=== PATIENT | male | born 1975 | race Caucasian/White ===

== ENCOUNTER 2017-05-20 09:35 | Emergency (ER) | payer MEDICAID ==
[2017-05-20 09:48] VITALS: BP 140/85; PULSE 64; RESP 16; TEMP 98.6; O2SAT 94
[2017-05-20] MEDS ORDERED: IBUPROFEN 600 MG TAB PO ONE (10:26)
[2017-05-20] MEDS ORDERED: AMOXICILLIN 250 MG PREPACK#4 BTL TAKEHOME ONE (10:26)
--- NOTE | 2017-05-20 10:32 | EDPHY ---
H & P Stated Complaint: BOTTOM LEFT TOOTH ACHE NEEDS SINCE SATURDAY Time Seen by Provider: 05/20/17 10:01 HPI/ROS: Chief complaint: Toothache History of present illness: This is a 41-year-old male who presents to the emergency department for a toothache. Patient reports the onset of pain in the left, lower aspect of his tooth over the last 3-4 days. Patient reports he has had problems with this tooth before. He did lose a crown off of it approximately a month ago. He did see his dentist. He is scheduled to see his dentist soon for repair but now he has pain and it increasing. He denies associated signs or symptoms including no fevers, no swelling of the mouth or throat, no difficulty swallowing, talking or breathing. He is on Percocet but it is not fully controlling the pain. - Personal History Current Tetanus Diphtheria and Acellular Pertussis (TDAP): Yes Tetanus Vaccine Date: < 10 YEARS - Medical/Surgical History Hx Asthma: No Hx Chronic Respiratory Disease: No Hx Diabetes: No Hx Cardiac Disease: No Hx Renal Disease: No Hx Cirrhosis: No Hx Alcoholism: No Hx HIV/AIDS: No Hx Splenectomy or Spleen Trauma: No Other PMH: DENIES - Social History Smoking Status: Never smoked - Physical Exam Exam: General: Alert, nontoxic Mouth/ENT: Moderate dental hygiene. Left lower 1st molar is cracked. There is no surrounding erythema or edema. There is no hoarseness, no drooling, no trismus, no stridor. Skin: No swelling of the face or neck. Constitutional: Initial Vital Signs Temperature (C) 37 C 05/20/17 09:44 Heart Rate 64 05/20/17 09:44 Respiratory Rate 16 05/20/17 09:44 Blood Pressure 140/85 H 05/20/17 09:44 O2 Sat (%) 94 05/20/17 09:44 O2 Delivery Mode Room Air Allergies/Adverse Reactions: No Known Allergies Allergy (Unverified 05/20/17 09:48) Home Medications: Medication Instructions Recorded Amoxicillin Trihydrate 500 mg PO Q8 7 Days 05/20/17 [Amoxicillin 500mg cap] Oxycodone-Acetaminophen 5-325 05/20/17 Medical Decision Making Procedures: Procedure: Dental block Indication: Dental pain Procedure: Risks and benefits were discussed. A combination of 1% lidocaine and 0.25% Marcaine without epinephrine, approximately 1.5 cc was injected lateral to the left lower 1st molar. Patient did obtain some pain relief. No complications noted. ED Course/Re-evaluation: Patient seen under the supervision of my secondary supervising physician Dr. Julius Dsouza. Patient presents to the emergency department for dental pain. He is already on Percocet. No evidence of complications. I will start her on antibiotics for suspected dental infection. He is asked to begin ibuprofen is adjunctive treatment was Percocet for pain control. Further topical medications is or gel are discussed. I have offered him a dental block after explaining the risks and benefits and he would like to proceed with this. He states he will be able to follow up with his dentist this week. Differential Diagnosis: Included but not limited to dental trauma, dental raisa, periodontal abscess, unlikely Robert's angina - Data Points Medications Given: Discontinued Medications Amoxicillin (Amoxil Chewable 250 Mg Prepack#4) 1 btl TAKEHOME EDNOW ONE PRN Reason: Protocol Stop: 05/20/17 10:27 Last Admin: 05/20/17 10:38 Dose: 1 btl Amoxicillin (Amoxicillin) 500 mg PO EDNOW ONE PRN Reason: Protocol Stop: 05/20/17 10:27 Last Admin: 05/20/17 10:37 Dose: 500 mg Ibuprofen (Motrin) 600 mg PO EDNOW ONE Stop: 05/20/17 10:27 Last Admin: 05/20/17 10:37 Dose: 600 mg Departure - Departure Disposition: Home, Routine, Self-Care Clinical Impression: Toothache Condition: Good Instructions: Toothache (ED) Additional Instructions: Follow-up with your dentist this week for recheck In regards to pain control see the following: Use ibuprofen [600] mg [3] times a day for the next 2-3 days for pain You already have Percocet. You can take the Percocet every 6 hours as needed for pain. Do not take extra Tylenol with it. It is sedating. Consider using topical pain medications such as Orajel Take all antibiotics as prescribed until finished even if feeling better If symptoms worsen or new symptoms develop return to the emergency room for recheck Referrals: NONE *PRIMARY CARE P,. [Primary Care Provider] - As per Instructions [facility],. [Clinic] - As per Instructions [facility] [Outside] - As per Instructions [facility] [Outside] - As per Instructions [facility] [Outside] - As per Instructions Dental [address] [Outside] - As per Instructions Dental [facility] [Outside] - As per Instructions Prescriptions: Amoxicillin Trihydrate [Amoxicillin 500mg cap] 500 mg PO Q8 7 Days
== END 2017-05-20 10:42 | disposition home or self-care (01) ==
PROC: 3E0X3BZ Introduction of Anesthetic Agent into Cranial Nerves, Percutaneous Approach (ICD-10-PCS; principal; 2017-05-20)
DX: K08.89 Other specified disorders of teeth and supporting structures (principal)